=== PATIENT | male | born 1970 | race Caucasian/White ===

== ENCOUNTER 2021-12-23 08:42 | Emergency (ER) | payer BC, MEDICAID ==
[~2021-12-23] VITALS: Ht 172.7 cm; Wt 90.0 kg
[2021-12-23] MEDS ORDERED: NITROGLYCERIN 0.4MG TABLET SL SL ONE (09:15)
[2021-12-23] MEDS ORDERED: ASPIRIN 325MG EC TABLET PO ONE (09:15)
[2021-12-23 09:59] LABS: BASOPHILS % 1.1 % (0.0-2.0); EOSINOPHILS % 1.4 % (0.0-5.0); HEMOGLOBIN. 13.9 g/dL (14.0-18.0); LYMPHOCYTES % 36.6 % (20.0-50.0); MEAN CORPUSCULAR HEMOGLOBIN 30.6 pg (28.0-32.0); MEAN CORPUSCULAR VOLUME 86.1 fL (80.0-94.0); MEAN PLATELET VOLUME 8.1 fl (7.4-10.4); MONOCYTES % 11.3 % (2.0-8.0); NEUTROPHILS % 49.6 % (40.0-76.0); PLATELET 222 x1000/uL (130-400); RED BLOOD CELL COUNT 4.53 mill/uL (4.7-6.1); RED CELL DISTRIBUTION WIDTH 13.6 % (11.6-14.6)
[2021-12-23 10:06] LABS: CHLORIDE 108 mEq/L (98-107)
[2021-12-23 12:28] VITALS: BP 124/86
== END 2021-12-23 12:31 | disposition left against medical advice (07) ==
LOC: ER 08:42 → CANBEDREQ 13:03
DX: R07.89 Other chest pain (principal); I10 Essential (primary) hypertension; Z98.890 Other specified postprocedural states
CPT/HCPCS: 36415; 71045; 80048; 84484; 85025; 93005; 99285